=== PATIENT | male | born 1970 | race Caucasian/White ===

== ENCOUNTER 2018-09-11 16:06 | Observation (INO) | payer OTHER, SELFPAY ==
--- NOTE | 2018-09-11 | DI.CT.S_ITS ---
PROCEDURE: CT ANGIO CHEST ABDOMEN INDICATIONS: chest pain, pleurisy, vomiting, diaphoresis, leg pain TECHNIQUE: Precontrast 5 mm thick sections acquired from the lung apices to the iliac crests. After the administration of intravenous contrast, 2.5 mm thick sections again acquired from the lung apices to the iliac crests. 10 mm maximum intensity projection (MIP) oblique sagittal and coronal reformats were then acquired. For radiation dose reduction, the following was used: automated exposure control. COMPARISON: None. FINDINGS: Image quality: Excellent. AORTA: Intramural hematoma: Absent Maximum hematoma thickness: Not applicable. Focal contrast enhancement: Intramural blood pool (< 2 mm neck or imperceptible communication with aortic lumen): Absent. Ulcer-like projection (broad communication with aortic lumen > 3 mm): Absent. Dissection: Absent Milan classification: Not applicable. Maximum aortic diameter: 3.2 cm. [If Milan A dissection, > 5.0 cm has a poorer prognosis. If Julius B dissection, > 4.0 cm has a poorer prognosis.] Periaortic hematoma: Absent. CHEST: Lungs and pleura: Atelectasis noted in the dependent portions of the lungs. Emphysematous disease with apical predominance noted. No pleural effusions or pneumothorax. Central and peripheral airways are patent and normal in caliber. Mediastinum: Heart size is normal. Atherosclerotic calcifications are noted in the left coronary vasculature. No pericardial effusion. No mediastinal or hilar adenopathy by size criteria. Central pulmonary arteries are normal in size. Esophagus is normal in caliber. No hiatal hernias. Bones and chest wall: No axillary adenopathy by size criteria. Thyroid gland is normal. No suspicious bony lesions. No vertebral body compression fractures. ABDOMEN: Vasculature: Celiac trunk and mesenteric arteries are patent. Renal arteries are also patent. Solid organs: Liver is normal in size and enhancement. Gallbladder is contracted, but within normal limits. Biliary system is non dilated. Pancreas enhances normally. Spleen is normal in size and enhancement. No adrenal nodules. Both kidneys are normal in size and enhancement, without hydronephrosis. Peritoneum and bowel: No free fluid or air. Bowel loops are normal in caliber and wall thickness. Nodes and vessels: No retroperitoneal or mesenteric adenopathy by size criteria. Inferior vena cava is normal in morphology. Scattered atherosclerotic calcifications noted in the abdominal aorta and the proximal iliac vasculature. Bones: No suspicious bony lesions. No vertebral body compression fractures. Spine degenerative disc disease and facet arthropathy. L5-S1 fixation hardware. Miscellaneous: No ventral hernias. IMPRESSION: 1. No aortic dissection or aortic aneurysm. 2. No central pulmonary embolus. 3. Bilateral emphysematous disease. 4. Atherosclerosis including the left coronary vasculature Dictated by: Vicky Christianson MD, PhD on 09/12/2018 at 10:10 Approved by: Vicky Christianson MD, PhD on 09/12/2018 at 10:16
[2018-09-11 16:13] VITALS: BP 153/104; PULSE 78; RESP 15; TEMP 36.7; O2SAT 99; BMI 27.7
--- NOTE | 2018-09-11 16:13 | DI.RAD.S_ITS ---
PROCEDURE: XR CHEST 1V INDICATIONS: chest pain TECHNIQUE: One view of the chest was acquired. COMPARISON: None. FINDINGS: Surgical changes and devices: None. Lungs and pleura: No pleural effusions or pneumothorax. Lungs are clear. Mediastinum: Mediastinal contours appear normal. Heart size is normal. Bones and chest wall: No suspicious bony lesions. Overlying soft tissues appear unremarkable. IMPRESSION: No acute cardiopulmonary findings. Dictated by: Alanna Solis M.D. on 09/11/2018 at 16:51 Approved by: Alanna Solis M.D. on 09/11/2018 at 16:51
[2018-09-11 16:25] LABS: Add Manual Diff / Slide Review NO; Basophils Absolute Auto 100 /uL (0-100); Basophils Percent Auto 1.1 % (0-2); Eosinophils Absolute Auto 100 /uL (0-450); Hematocrit 45.7 % (41-53); Hemoglobin 15.3 g/dL (13.5-17.5); Lymphocytes Absolute Auto 2700 /uL (1100-4500); Lymphocytes Percent Auto 36.9 % (25-40); Mean Corpuscular HGB Conc 33.5 % (30-36); Mean Corpuscular Hemoglobin 31.4 PG (26-34); Mean Corpuscular Volume 93.5 fL (80-100); Monocytes Absolute Auto 600 /uL (0-900); Monocytes Percent Auto 8.5 % (3-14); Neutrophils Absolute Auto 3700 /uL (1500-7000); Neutrophils Percent Auto 51.5 % (50-75); Platelet Count 294 X10^3/uL (150-400); Red Blood Cell Count 4.89 X10^6/uL (4.5-5.9); Red Cell Distribution Width 13.9 % (11.6-14.8); White Blood Cell Count 7.3 X10^3/uL (4.5-11.0)
[2018-09-11 16:34] LABS: INR 1.1 (0.9-1.3)
[2018-09-11 16:37] LABS: PTT Partial Thromboplastin Tim 34 SECONDS (26.4-36.2)
[2018-09-11 16:41] LABS: Alanine Aminotransferase 34 IU/L (21-72); Albumin 4.5 g/dL (3.5-5.0); Albumin Globulin Ratio 1.4 (1.0-2.8); Alkaline Phosphatase 69 U/L (38-126); Aspartate Aminotransferase 29 IU/L (17-59); Bilirubin Total 0.3 mg/dL (0.2-1.3); Blood Urea Nitrogen 18 mg/dL (9-20); Calcium 9.4 mg/dL (8.4-10.2); Carbon Dioxide 27 mmol/L (22-32); Chloride 102 mmol/L (98-107); Creatine Kinase 158 U/L (55-170); Estimated Glomerular Filt Rate > 60.0 mL/min (>60); Globulin 3.3 g/dL (1.7-4.1); Glucose 95 mg/dL (70-100); HEMOLYSIS 16 (0-50); Lipase 64 U/L (23-300); Potassium 4.4 mmol/L (3.4-5.1); Sodium 139 mmol/L (137-145); Total Protein 7.8 g/dL (6.3-8.2)
[2018-09-11 16:53] LABS: Troponin I 0.013 ng/mL (0.01-0.034)
[2018-09-11 16:56] LABS: CKMB % Relative Index 0.5 % (1.5-5.0); Creatine Kinase MB 0.84 ng/mL (<2.37)
--- NOTE | 2018-09-11 16:59 | ED_ITS ---
HPI - Chest Pain General Chief Complaint: Chest Pain Stated Complaint: Chest pain Time Seen by Provider: 09/11/18 16:12 Source: patient and EMS Mode of arrival: EMS Limitations: no limitations History of Present Illness HPI narrative: Patient is a 48-year-old male who presents with chest pain. He was being evaluated by his primary care doctor while in the waiting room he had severe heaviness in his chest. He apparently was clammy diaphoretic with the doctor evaluated him EMS was called. He was given aspirin and nitro which has seemed to help but continues to have chest discomfort. No shortness of breath. It is of substernal epigastric area. He does have a history of esophageal spasm. He ate a pork sandwich 2 hr prior to his symptoms. This does not feel like an esophageal spasm. MD complaint: chest pain Onset (ago): minute(s) Duration: constant Onset: during rest Pain location: substernal and epigastric Relieving factors: nothing Exacerbating factors: nothing Related Data Home Medications Medication Instructions Recorded Confirmed aspirin 81 mg tablet,delayed 81 mg PO DAILY 07/25/18 09/11/18 release oxycodone-acetaminophen 7.5 mg-325 1 tab PO TID PRN tab 07/25/18 09/11/18 mg tablet indomethacin 25 mg PO DAILY 09/11/18 09/11/18 pantoprazole 40 mg PO DAILY 09/11/18 09/11/18 ranitidine HCl 150 mg PO BID 09/11/18 09/11/18 zolpidem 10 mg PO BEDTIME PRN 09/11/18 09/11/18 Allergies Allergy/AdvReac Type Severity Reaction Status Date / Time penicillin G [PENICILLIN G] Allergy Severe THROAT Verified 09/11/18 16:13 SWELLING Review of Systems Review of Systems GENERAL: Denies chills, fatigue, malaise, fever, sweats, travel HEENT: Denies sinus pain, ear pain, sore throat, difficulty swallowing, neck pain RESPIRATORY: Denies dyspnea, cough, wheezing, hemoptysis, sputum. CARDIOVASCULAR: See HPI GASTROINTESTINAL: Denies nausea, vomiting, abdominal pain, diarrhea, constipation, melena. : Denies dysuria, frequency, incontinence, hematuria, urinary retention, flank pain. MUSCULOSKELETAL: Denies weakness, joint pain, or bony pain SKIN: No rash, no erythema, no pruritus NEUROLOGIC: Denies weakness, dizziness, headache, numbness, change in speech, confusion PSYCHIATRIC: No concerning psychosocial issues. 12 point review of systems is negative except for those stated above and HPI [facility] Medical History Carotid artery dissection (Resolved) Social History Smoking Status: Current every day smoker Exam Initial Vital Signs Initial Vital Signs: Vital Signs Temperature 98.1 F 09/11/18 16:13 Pulse Rate 78 09/11/18 16:13 Respiratory Rate 15 09/11/18 16:13 Blood Pressure 153/104 H 09/11/18 16:13 Pulse Oximetry 99 09/11/18 16:13 GENERAL: Appears well and non diaphoretic HEENT: Head atraumatic,EOMI, pupils reactive, CARDIOVASCULAR: Regular rate and rhythm without murmurs, rubs or gallops. RESPIRATORY: Breath sounds equal bilaterally, no wheezes rales or rhonchi. ABDOMEN: Soft, nontender. Normoactive bowel sounds all 4 quadrants. No guarding or rebound. EXTREMITIES: Normal range of motion, no clubbing or edema. Neurovascularly intact NEUROLOGICAL: Alert and oriented x4.Normal gait and speech. Cranial nerves II through XII grossly intact. SKIN: Warm, dry, no laceration, no petechiae, no rashes or lesions. Course Orders Ordered: ED Orders 09/11/18 16:13 XR chest 1V Stat 09/11/18 16:19 Complete Blood Count AUTO DIFF Stat Comprehensive Metabolic Panel Stat Lipase Stat Partial Thromboplastin Time Stat Prothrombin Time INR Stat Troponin & CK Cardiac Panel Stat 09/11/18 18:20 EKG-12 Lead Stat 09/11/18 18:40 Troponin I Stat Discontinued Medications Ketorolac Tromethamine (Toradol) 30 mg IV NOW ONE Stop: 09/11/18 16:50 Last Admin: 09/11/18 17:01 Dose: 30 mg Pantoprazole Sodium (Protonix) 40 mg IV NOW ONE Stop: 09/11/18 16:50 Last Admin: 09/11/18 17:01 Dose: 40 mg Vital Signs - 8 hr 09/11/18 16:13 09/11/18 17:30 09/11/18 18:11 Temperature 98.1 F Pulse Rate 78 49 L 76 Respiratory Rate 18 Blood Pressure 153/104 H Blood Pressure [Left Arm] 123/83 133/78 Pulse Oximetry 99 100 92 09/11/18 18:35 09/11/18 19:00 Temperature Pulse Rate 49 L 52 L Respiratory Rate 14 21 Blood Pressure Blood Pressure [Left Arm] 124/79 130/86 Pulse Oximetry 100 100 MDM - Chest Pain Lab Data Attestation: I reviewed the patient's lab results. Result diagrams: 09/11/18 16:19 09/11/18 16:19 Lab Results 09/11/18 09/11/18 09/11/18 Range/Units 16:19 16:19 16:19 WBC 7.3 (4.5-11.0) X10^3/uL RBC 4.89 (4.5-5.9) X10^6/uL Hgb 15.3 (13.5-17.5) g/dL Hct 45.7 (41-53) % MCV 93.5 (80-100) fL MCH 31.4 (26-34) PG MCHC 33.5 (30-36) % RDW 13.9 (11.6-14.8) % Plt Count 294 (150-400) X10^3/uL Neut % (Auto) 51.5 (50-75) % Lymph % (Auto) 36.9 (25-40) % [place] % (Auto) 8.5 (3-14) % Eos % (Auto) 2.0 (2-4) % Baso % (Auto) 1.1 (0-2) % Neut # (Auto) 3700 (3856-7946) /uL Lymph # (Auto) 2700 (7941-5580) /uL [place] # (Auto) 600 (0-900) /uL Eos # (Auto) 100 (0-450) /uL Baso # (Auto) 100 (0-100) /uL PT 13.0 H (10.1-12.7) SECONDS INR 1.1 (0.9-1.3) APTT 34 (26.4-36.2) SECONDS Sodium 139 (137-145) mmol/L Potassium 4.4 (3.4-5.1) mmol/L Chloride 102 (98-107) mmol/L Carbon Dioxide 27 (22-32) mmol/L BUN 18 (9-20) mg/dL Creatinine 1.20 (0.66-1.25) mg/dL Estimated GFR > 60.0 (>60) mL/min BUN/Creatinine Ratio 15.0 (6-22) Glucose 95 (70-100) mg/dL Calcium 9.4 (8.4-10.2) mg/dL Total Bilirubin 0.3 (0.2-1.3) mg/dL AST 29 (17-59) IU/L ALT 34 (21-72) IU/L Alkaline Phosphatase 69 (38-126) U/L Total Creatine Kinase 158 (55-170) U/L CK-MB (CK-2) 0.84 (<2.37) ng/mL CK-MB (CK-2) Rel Index 0.5 L (1.5-5.0) % Troponin I 0.013 (0.01-0.034) ng/mL Total Protein 7.8 (6.3-8.2) g/dL Albumin 4.5 (3.5-5.0) g/dL Globulin 3.3 (1.7-4.1) g/dL Albumin/Globulin Ratio 1.4 (1.0-2.8) Lipase 64 (23-300) U/L 09/11/18 Range/Units 18:40 WBC (4.5-11.0) X10^3/uL RBC (4.5-5.9) X10^6/uL Hgb (13.5-17.5) g/dL Hct (41-53) % MCV (80-100) fL MCH (26-34) PG MCHC (30-36) % RDW (11.6-14.8) % Plt Count (150-400) X10^3/uL Neut % (Auto) (50-75) % Lymph % (Auto) (25-40) % [place] % (Auto) (3-14) % Eos % (Auto) (2-4) % Baso % (Auto) (0-2) % Neut # (Auto) (2980-7015) /uL Lymph # (Auto) (0536-8835) /uL [place] # (Auto) (0-900) /uL Eos # (Auto) (0-450) /uL Baso # (Auto) (0-100) /uL PT (10.1-12.7) SECONDS INR (0.9-1.3) APTT (26.4-36.2) SECONDS Sodium (137-145) mmol/L Potassium (3.4-5.1) mmol/L Chloride (98-107) mmol/L Carbon Dioxide (22-32) mmol/L BUN (9-20) mg/dL Creatinine (0.66-1.25) mg/dL Estimated GFR (>60) mL/min BUN/Creatinine Ratio (6-22) Glucose (70-100) mg/dL Calcium (8.4-10.2) mg/dL Total Bilirubin (0.2-1.3) mg/dL AST (17-59) IU/L ALT (21-72) IU/L Alkaline Phosphatase (38-126) U/L Total Creatine Kinase (55-170) U/L CK-MB (CK-2) (<2.37) ng/mL CK-MB (CK-2) Rel Index (1.5-5.0) % Troponin I 0.019 (0.01-0.034) ng/mL Total Protein (6.3-8.2) g/dL Albumin (3.5-5.0) g/dL Globulin (1.7-4.1) g/dL Albumin/Globulin Ratio (1.0-2.8) Lipase (23-300) U/L Urine Dip Bedside Urine Glucose Negative Bedside Urine Bilirubin - Negative Bedside Urine Ketone - Negative Urine Specific [place] 1.020 Bedside Urine Occult Blood - Negative Bedside Urine pH 6.0 Bedside Urine Protein - Negative Bedside Urine Urobilinogen - Negative Bedside Urine Nitrite - Negative Bedside Urine Leukocytes - Negative Esterase ECG Data Attestation: I personally reviewed and interpreted this ECG as follows: Prior ECG tracings: available for review Interpretation: EKG 1. Sinus rhythm rate 56 DC interval 141 T-wave inversion noted in V2 which is new from previous EKG in 2015. He does have T-wave inversion in lead V1 which is similar to prior. No ST depressions or elevations. EKG 2. Sinus rhythm rate 46 persistent all biphasic like T-waves in V2 no ST changes. EKG 3. Sinus rhythm rate 48 similar to previous EKG without changes. MDM Narrative Medical decision making narrative: Patient does have EKG changes troponin has gone up slightly is still is considered negative. Patient has signs and symptoms concerning for angina or ischemia. Patient will be placed in observation. Patient refusing any more nitro, says it gives him a headache. He is given Toradol and Protonix. He is seen by pain management for chronic headaches. Discharge Plan Departure Patient Disposition: Admitted as Observation Clinical Impression: Chest pain
[2018-09-11] MEDS: KETOROLAC 60 MG/2 ML VIAL 30 MG IV (17:01)
[2018-09-11] MEDS: PANTOPRAZOLE 40 MG VIAL IV (17:01)
[2018-09-11 17:30] VITALS: BP 123/83; PULSE 49; RESP 19; O2SAT 100
[2018-09-11 18:11] VITALS: BP 133/78; PULSE 76; RESP 18; O2SAT 92
--- NOTE | 2018-09-11 18:12 | PC.NURSE ---
md suggested to try ntg if pt still has pain, pt states pain much better now after rx, and refuses ntg at this time. aware
[2018-09-11 18:35] VITALS: BP 124/79; PULSE 49; RESP 14; O2SAT 100
[2018-09-11 19:00] VITALS: BP 130/86; PULSE 52; RESP 21; O2SAT 100
[2018-09-11 19:18] LABS: Troponin I 0.019 ng/mL (0.01-0.034)
[2018-09-11 20:25] VITALS: BP 149/95; PULSE 56; RESP 20; TEMP 36.6; O2SAT 99
[2018-09-11 20:31] VITALS: BMI 28.0
[2018-09-11] MEDS: PANTOPRAZOLE 40 MG TABLET PO (22:51)
[2018-09-11] MEDS: MAG HYDROX/ALUMINUM/SIMETH SUS 20 ML, LIDOCAINE VISCOUS 2% 15 ML PO (23:03)
[2018-09-11] MEDS: HYDROCODONE/ACET 5/325 TABLET 1 TAB PO (23:06)
--- NOTE | 2018-09-11 23:51 | PC.NURSE ---
Evening Shift Note- Patient arrived to room from ER via stretcher. Patiet able to wake with steady gait noted. Admission questions completed. Home medicaitons reviewed. Physical assessment done. Tele monitor in place and paperwork sent to ICU. Oriented patient to bed and bed controls, room, bathroom, lights, phone, menu, and call shoemaker/TV remote. PRN norco given for complaints of pain. Patient reports no change upon reassessment. Safety measures in place. Patient agrees to call for assistance. staying night in room. call shoemaker and phone within reach. Will Continue to monitor.
--- NOTE | 2018-09-12 | DI.NM.S_ITS ---
PROCEDURE: NM LOPEZ PERF SPECT SINGLE STUDY Exercise myocardial perfusion SPECT with gated imaging and ejection fraction RADIOPHARMACEUTICAL: 27.2 mCi Tc-99m sestamibi IV at peak exercise. INDICATIONS: chest pain, dizziness, symptomatic bradycardia TECHNIQUE: Radiopharmaceutical was injected at peak stress test. SPECT images were obtained, with perfusion images in short axis, horizontal long axis, and vertical long axis views. Gated images were reviewed using [employer] software. COMPARISON: None. CARDIAC STRESS: A standard [place] treadmill exercise tolerance test was performed by the patient under the supervision of an attending staff. The patient exercised for 7 minutes and 20 seconds reaching 10.1 METs; functional aerobic impairment (ANISHA) is +30%. Hemodynamic data: There is normal blood pressure and heart response to exercise. Patient achieved 86% of maximum predicted heart rate. Symptoms: Patient had non-diagnostic chest pain during the entire study that may have increased with exercise. EKG: No diagnostic changes of ischemia; no ectopy. FINDINGS: Raw data: There is good labeling of myocardium by radiotracer. No significant motion artifacts. Gvvs-oi-bginf ratio is 0.33 (normal is less than 0.38 for sestamibi tracer, and less than 0.50 for thallium tracer). Left ventricular function: Gated images demonstrate normal left ventricle wall thickening. No segmental wall motion abnormalities. Left ventricle end diastolic volume is 138 mL. Left ventricle stress ejection fraction is 52%; normal values are above 45%. Myocardial perfusion: There is normal distribution of activity in the left and right ventricular myocardium, without focal perfusion defects. IMPRESSION: Low risk, normal treadmill only nuclear stress test. Non-diagnostic chest pain. 1) Normal perfusion images with evidence of ischemia or infarction. 2) Normal left ventricular size, wall motion, and systolic function (EF post stress 52%). 3) No ECG evidence of ischemia. 4) Non-diagnostic chest pain during the entire study that may have increased with exercise. 5) Reduced exercise tolerance (10.1 METs, ANISHA +30%). Target heart achieved. Appropriate hemodynamic response to exercise. 6) No prior nuclear stress test available for comparison. Dictated by: Luz Arellano MD on 09/12/2018 at 12:50 Approved by: Luz Arellano MD on 09/12/2018 at 12:54
[2018-09-12 00:15] VITALS: BP 130/75; PULSE 67; RESP 16; TEMP 36.3; O2SAT 97
--- NOTE | 2018-09-12 00:40 | P.HP_ITS ---
History of Present Illness Date Patient Seen: 09/11/18 Time Patient Seen: 20:40 Chief complaint: Chest pain Narrative: The patient is a 48-year-old male who presented to the ED to be evaluated for chest pain. Prior to arrival patient was being seen by his PCP for a routine exam at which time he developed sudden onset of severe sub- sternal vs. epigastric chest discomfort. Initially, chest discomfort was characterized as a burning sensation. However, in a short period of time intensity magnified, now w/ sensation of a constant dull ache. Severity is noted to range 1-5 / 10 at rest AND 6-8 / 10 with inspiration or movement. Associated symptoms include shortness of breath, diaphoresis, and difficulty with deep inspiration due to chest discomfort. EMS was summoned, while en route to the ED patient was given 324 mg of ASA, a dose of morphine and a dose of nitro. His pain subsided, but did not go away completely. Developed headache with nitro. Three weeks ago patient has been experiencing URI symptoms that included sinus pressure, drainage, chest congestion, and cough that persisted for 1-2 weeks. On 09/10/2018 at 3:00 a.m. patient woke up from sleep with nausea, vomiting, palpitations, and diaphoresis. Since then has had an additional 2-3 episodes of vomiting. At time episodes are post-prandial. Patient does have a history of GERD (sx reported as controlled w/ PPI and H2B, an esophageal stricture (w/ prior dilatation, 2017), and an esophageal spasm. Recently having trouble swallowing. Able to manage secretions. Recently patient's blood pressure has been elevated, 150-90 range (typically runs SBP 110-120 and DBP 70-80). He complains of acute LLE calf and inner aspect of the thigh tenderness (no unilateral edema). No prior history of SC, arrhthmias or CVA. He denies hemoptysis, syncopal events, and blood loss per rectum. He does have risk factors for heart disease which include prolonged history of tobacco dependence, family history of heart disease. No prior history of a stress test or any other cardiac workup. GI work-up in 2017 Patient History Medical History COPD (chronic obstructive pulmonary disease) (Acute) Chronic migraine (Acute) Esophageal spasm (Acute) Michael's syndrome (Acute) Tobacco dependence (Acute) DDD (degenerative disc disease) (Chronic) Esophageal stricture (Suspected) Carotid artery dissection (Resolved) Uvular swelling (Resolved) Surgical History History of back surgery (Acute) Family & Social History Family History: Reviewed 09/12/18 by GABRIEL Gamboa Social History: household members spouse,children Prior Living Arrangements House Safety & Behavioral: Feels Safe in Current Yes Environment Been Physically Hurt or No Threatened By a Person Suicidal Ideation Description None Tobacco & Substance use: Tobacco type cigarettes, less than 1/2 ppd Smoking Status Current every day smoker alcohol intake never alcohol intake frequency 0-2 drinks per day Substance Use Type Uses CBD Meds Home Medications Medication Instructions Recorded Confirmed Type aspirin 81 mg tablet,delayed 81 mg PO DAILY 07/25/18 09/11/18 History release oxycodone-acetaminophen 7.5 mg-325 1 tab PO TID PRN tab 07/25/18 09/11/18 History mg tablet indomethacin 25 mg PO DAILY 09/11/18 09/11/18 History pantoprazole 40 mg PO DAILY 09/11/18 09/11/18 History ranitidine HCl 150 mg PO BID 09/11/18 09/11/18 History zolpidem 10 mg PO BEDTIME PRN 09/11/18 09/11/18 History Allergies Allergy/AdvReac Type Severity Reaction Status Date / Time penicillin G [PENICILLIN G] Allergy Severe THROAT Verified 09/11/18 16:13 SWELLING Review of Systems Review of Systems All systems reviewed & are unremarkable except as noted in HPI and below Exam Vital Signs (past 8 hours): - 09/11/18 17:30 09/11/18 18:11 09/11/18 18:35 Temperature Pulse Rate 49 L 76 49 L Respiratory Rate 19 18 14 Blood Pressure Blood Pressure [Left Arm] 123/83 133/78 124/79 Pulse Oximetry 100 92 100 09/11/18 19:00 09/11/18 20:25 Temperature 97.9 F Pulse Rate 52 L 56 L Respiratory Rate 21 20 Blood Pressure 149/95 H Blood Pressure [Left Arm] 130/86 Pulse Oximetry 100 99 Oxygen Delivery Method Room Air Oxygen Flow Rate 0 Narrative Exam Narrative: Constitutional: Mild discomfort, c/o epigastric pain Neurologic: AOx3, no focal neurological deficits Head: NC, AT Eyes: Left eye lid ptosis, pupil dilates sluggishly. Right eye WNL. Ears: external ears normal, no otorrhea Nose: external nose normal, no rhinorrhea or epistaxis Throat: dry MM, oropharynx w/o exudate Neck: no masses, lymphadenopathy, or JVD Chest / Respiratory: equal chest rise, shallow diminished respiratory effort, pain reproducible w/ palpation Heart / CV: S1S2, no murmur Abdomen / GI: round, NT, ND, + BS, no organomegaly : no suprapubic tenderness, no CVA Peripheral / Vascular: BLE warm to touch, DP and PT pulses palpable, no edema LLE tender calf and inner thigh, sensation intact Musc: full ROM of upper and lower extremities, adequate muscle tone and bulk Skin: no ecchymosis or suspicious lesions / ulcers Objective Labs Result Diagrams: 09/11/18 16:19 09/11/18 16:19 Labs: Laboratory Results - last 24 hr 09/11/18 09/11/18 09/11/18 16:19 16:19 16:19 WBC 7.3 RBC 4.89 Hgb 15.3 Hct 45.7 MCV 93.5 MCH 31.4 MCHC 33.5 RDW 13.9 Plt Count 294 Neut % (Auto) 51.5 Lymph % (Auto) 36.9 [place] % (Auto) 8.5 Eos % (Auto) 2.0 Baso % (Auto) 1.1 Neut # (Auto) 3700 Lymph # (Auto) 2700 [place] # (Auto) 600 Eos # (Auto) 100 Baso # (Auto) 100 PT 13.0 H INR 1.1 APTT 34 Sodium 139 Potassium 4.4 Chloride 102 Carbon Dioxide 27 BUN 18 Creatinine 1.20 Estimated GFR > 60.0 BUN/Creatinine Ratio 15.0 Glucose 95 Calcium 9.4 Total Bilirubin 0.3 AST 29 ALT 34 Alkaline Phosphatase 69 Total Creatine Kinase 158 CK-MB (CK-2) 0.84 CK-MB (CK-2) Rel Index 0.5 L Troponin I 0.013 Total Protein 7.8 Albumin 4.5 Globulin 3.3 Albumin/Globulin Ratio 1.4 Lipase 64 09/11/18 18:40 WBC RBC Hgb Hct MCV MCH MCHC RDW Plt Count Neut % (Auto) Lymph % (Auto) [place] % (Auto) Eos % (Auto) Baso % (Auto) Neut # (Auto) Lymph # (Auto) [place] # (Auto) Eos # (Auto) Baso # (Auto) PT INR APTT Sodium Potassium Chloride Carbon Dioxide BUN Creatinine Estimated GFR BUN/Creatinine Ratio Glucose Calcium Total Bilirubin AST ALT Alkaline Phosphatase Total Creatine Kinase CK-MB (CK-2) CK-MB (CK-2) Rel Index Troponin I 0.019 Total Protein Albumin Globulin Albumin/Globulin Ratio Lipase Assessment & Plan Plan: Assessment/Plan Narrative: Acute Chest Pain Pertinent hx of carotid dissection, tobacco dependence, esophageal stricture, GERD Trop 0.013, 0.019 EKG revealing of SB w/ sinus arrhytmia, non-ischemic, HR 40s VSS. No e-lyte abnormalities. CXR not indicative of acute cardiopulmonary findings. - Tele monitoring - Continue trending troponins - Risk Stratify: A1C, FLP - NPO - MPI in am - Orthostatic BP - Continue 81 mg ASA daily Symptomatic Bradycardia Reports severe snoring. Notes being evaluated for ELENI in 2017 and not deemed to be a candidate for CPAP. H/O enlarged / edematous uvula w/ surgery. Not on a BB or CCB. - Check TSH - MPI in am - Infection ?? CXR negative, no leukocytosis - Echo H/O carotid artery dissection Sudden onset of chest pain, persistent, unresponsive to nitro w/ associated VALERO, dyspnea, diaphoresis and LLE acute pain - CT imaging per dissection protocol Results: no AAA, thoracic aneurysm or dissection. Normal mesenteric arteries mild mural thrombus causes mild narrowing of the visualized right common iliac artery; normal left common iliac artery Started on Lovenox COPD w/ scattered blebs and bullae w/ largest 1.8 cm ?? new no hemoptysis, no PE on CTA chest Esophageal Stricture Suspected... refractory / recurrent. H/o prior dilatation (2017) S/S: Cp, dysphagia. RF: smoking, GERD, nausea, post-prandial vomiting - Increase PPI / protonix to BID - Continue ranitadine at [employer]ESSIONAL dose - Encouraged smoking cessation - Consider GI consult for evaluation Nausea / Vomiting intractable - Compazine Quality VTE Deep Vein Thrombosis/Pulmonary Embolism Present on Admission: No
[2018-09-12 01:01] LABS: Troponin I 0.015 ng/mL (0.01-0.034)
[2018-09-12] MEDS: MORPHINE 4 MG/ML INJ IV (01:03)
[2018-09-12] MEDS: ENOXAPARIN 100 MG/ML SYRINGE 90 MG SUBCUT (01:03)
[2018-09-12] MEDS: SODIUM CHLORIDE 0.9% 1,000 ML 125 ML IV ×2 (01:03→09:26)
[2018-09-12] MEDS: HYDROCODONE/ACET 5/325 TABLET 1 TAB PO (04:40)
[2018-09-12 04:46] VITALS: BP 122/78; PULSE 61; RESP 16; TEMP 36.8; O2SAT 98
[2018-09-12 07:21] LABS: Hemoglobin A1C% w Est Avg Glu 5.5 % (4.0-6.0)
[2018-09-12 07:24] LABS: D Dimer 219 ng/mL (<230)
[2018-09-12 07:30] VITALS: BP 124/82; PULSE 57; RESP 18; TEMP 36.3; O2SAT 97
[2018-09-12 07:33] LABS: Cholesterol 188 mg/dL (140-199); HDL Cholesterol 30 mg/dL (40-60); LDL Cholesterol Calculated 121 mg/dL (<100); Triglycerides 184 mg/dL (35-150)
[2018-09-12 07:45] LABS: Troponin I 0.026 ng/mL (0.01-0.034)
[2018-09-12 08:03] LABS: Thyroid Stimulating Hormone 3.01 uIU/mL (0.47-4.68)
[2018-09-12 10:05] LABS: BUN Creatinine Ratio 16.4 (6-22); Blood Urea Nitrogen 18 mg/dL (9-20); Calcium 8.8 mg/dL (8.4-10.2); Carbon Dioxide 25 mmol/L (22-32); Chloride 106 mmol/L (98-107); Estimated Glomerular Filt Rate > 60.0 mL/min (>60); Glucose 90 mg/dL (70-100); HEMOLYSIS < 15 (0-50); Potassium 4.8 mmol/L (3.4-5.1); Sodium 139 mmol/L (137-145)
--- NOTE | 2018-09-12 11:50 | P.PCN_ITS ---
Cardiac Stress Test Report Referral & Results Date Patient Seen: 09/12/18 Time Patient Seen: 11:48 Requesting provider: Rolly Richards Indication: Chest pain Rest ECG: Unremarkable Procedure Note: Today following both written and verbal informed consent the patient was exercised according to a standard [place] protocol patient went for a total of 7 min 20 sec achieving a maximum heart rate of 149 maximum systolic blood pressure of 190. This is approximately 10.1 METS. Exercise was terminated at this point because of inability of the patient to continue due to back pain and fatigue.Patient was also given Cardiolite through a previously started Hep-Lock IV by the nuclear weapons mechanical specialist approximately 1 minute prior to the cessation of exercise. No ST-T segment changes identified Normal heart rate and blood pressure response to exercise Functional aerobic impairment rated 20% on the sedentary scale Impression: No evidence of ischemia based on ECG criteria. Limited exercise capacity as above. Please see perfusion imaging report as well for details regarding possible ischemia identified through that modality. Please note: Actual ECG tracings can be found in the PACS system.
[2018-09-12 12:34] VITALS: BP 121/74; PULSE 67; RESP 18; TEMP 36.3; O2SAT 97
[2018-09-12] MEDS: PANTOPRAZOLE 40 MG TABLET PO (13:14)
[2018-09-12] MEDS: ASPIRIN EC 81 MG TABLET PO (13:14)
[2018-09-12] MEDS: MORPHINE 2 MG/ML INJ IV (13:26)
[2018-09-12] MEDS: HEPARIN 5,000 UNIT/ML VIAL 5000 UNIT SUBCUT (14:17)
[2018-09-12 14:26] LABS: Troponin I 0.024 ng/mL (0.01-0.034)
--- NOTE | 2018-09-12 15:12 | P.DS_ITS ---
History of Present Illness Date Patient Seen: 09/12/18 Chief complaint: Chest pain Narrative: Written by Rolly Richards PA-C: The patient is a 48-year-old male who presented to the ED to be evaluated for chest pain. Prior to arrival patient was being seen by his PCP for a routine exam at which time he developed sudden onset of severe sub- sternal vs. epigastric chest discomfort. Initially, chest discomfort was characterized as a burning sensation. However, in a short period of time intensity magnified, now w/ sensation of a constant dull ache. Severity is noted to range 1-5 / 10 at rest AND 6-8 / 10 with inspiration or movement. Associated symptoms include shortness of breath, diaphoresis, and difficulty with deep inspiration due to chest discomfort. EMS was summoned, while en route to the ED patient was given 324 mg of ASA, a dose of morphine and a dose of nitro. His pain subsided, but did not go away completely. Developed headache with nitro. Three weeks ago patient has been experiencing URI symptoms that included sinus pressure, drainage, chest congestion, and cough that persisted for 1-2 weeks. On 09/10/2018 at 3:00 a.m. patient woke up from sleep with nausea, vomiting, palpitations, and diaphoresis. Since then has had an additional 2-3 episodes of vomiting. At time episodes are post-prandial. Patient does have a history of GERD (sx reported as controlled w/ PPI and H2B, an esophageal stricture (w/ prior dilatation, 2017), and an esophageal spasm. Recently having trouble swallowing. Able to manage secretions. Recently patient's blood pressure has been elevated, 150-90 range (typically runs SBP 110-120 and DBP 70-80). He complains of acute LLE calf and inner aspect of the thigh tenderness (no unilateral edema). No prior history of VA, arrhthmias or CVA. He denies hemoptysis, syncopal events, and blood loss per rectum. He does have risk factors for heart disease which include prolonged history of tobacco dependence, family history of heart disease. No prior history of a stress test or any other cardiac workup. GI work-up in 2017. Discharge Providers Date of admission: 09/11/18 19:48 Primary care physician: Val Rodriguez DO Consults: 09/11/18 20:39 Consult to Respiratory Therapy Evaluate & Treat Comment: Physician Instructions: Evaluate and treat Discharge provider: Mercy Zeng DO Discharge Date: 09/12/18 Summary Discharge Diagnosis: 1. Acute atypical chest pain, present on admission. Improving. 2. Possible obstructive sleep apnea. 3. History of carotid artery dissection, not present on admission. Inactive. 4. Probable COPD, present on admission. Stable. 5. History of esophageal stricture. 6. Tobacco use disorder, present on admission. Active. Hospital Course: 1. Acute atypical chest pain, present on admission. Improving. -Sudden onset burning persistent chest pain incompletely responsive to morphine and nitroglycerin with associated dyspnea and diaphoresis. -Cardiac risk factors include: Family history, tobacco dependence, previous carotid artery dissection, overweight, and possible obstructive sleep apnea. -Serial troponins were within normal limits. -EKG demonstrated sinus bradycardia without acute ischemic changes such as ST elevation or depression. -Vital signs were stable and there were no electrolyte abnormalities. Continued to monitor on telemetry closely. -Cardiac stress test with myocardial perfusion imaging normal without ischemic changes. -Ordered hemoglobin A1c 5.5% and he is not diabetic. -Continued aspirin 81 mg daily. -CTA demonstrated significant atherosclerotic changes throughout chest and abdomen. Lipid panel demonstrated: Total cholesterol 188, LDL 121, triglycerides 184, and HDL 30. Started atorvastatin 40 mg daily at bedtime and recommended increasing amount of omega-3 fatty acid. 2. Possible obstructive sleep apnea. -Reports severe snoring. Notes being evaluated for ELENI in 2017 and not deemed to be a candidate for CPAP. History of enlarged and edematous uvula status post surgery. -Consider repeat outpatient sleep study. 3. History of carotid artery dissection, not present on admission. Inactive. -Sudden onset burning persistent chest pain incompletely responsive to morphine and nitroglycerin with associated dyspnea and diaphoresis. -CTA did not demonstrate any PE, thoracic aneurysm or artery dissection with significant atherosclerotic plaque throughout chest and abdomen even involving left coronary artery. 4. Probable COPD, present on admission. Stable. -Patient is a longstanding smoker with CTA demonstrating scattered blebs and bullae with the largest 1.8 cm. -Recommended outpatient pulmonology referral for evaluation of COPD. 5. History of esophageal stricture. -Suspected refractory / recurrent. History of prior dilatation (2017). -Signs and symptoms: CP, dysphagia. Risk factors: smoking, GERD, nausea, post- prandial vomiting. -Continued home PPI. -Continued home ranitadine. -Encouraged smoking cessation. -Recommended follow-up with GI. 6. Tobacco use disorder, present on admission. Active. -Counseled the patient extensively regarding smoking cessation for which he adamantly confirms that he is never going to smoke again. -Consider smoking cessation aids as an outpatient. Status at Discharge Functional status at discharge: independent ambulation Overall status at discharge: patient is back to baseline Exam Vital Signs (past 8 hours): - 09/12/18 07:30 09/12/18 12:34 Temperature 97.4 F L 97.4 F L Pulse Rate 57 L 67 Respiratory Rate 18 18 Blood Pressure 124/82 121/74 Pulse Oximetry 97 97 Oxygen Delivery Method Room Air Oxygen Flow Rate 0 Narrative Exam Narrative: General: Middle-aged gentleman lying in bed and in no acute distress, well- developed, well-nourished, appropriately interactive. HEENT: Normocephalic, atraumatic. External ears without defect. Pupils equal, round, and reactive to light and accommodation. Anicteric sclerae, moist conjunctivae, and no lid lag. Left-sided Michael syndrome. Neck: Supple with full range of motion. No jugular venous distension. No bruits. No lymphadenopathy or thyromegaly. Cardiovascular: Regular rate and rhythm without murmurs, rubs, or gallops appreciated Pulmonary: Clear to auscultation bilaterally without crackles, wheezes, or rhonchi. Normal respiratory effort with no use of accessory muscles. Abdomen: Soft, bowel sounds present, nontender, nondistended. No hepatosplenomegaly or masses appreciated. Extremities: No clubbing, cyanosis, or edema. Skin: Normal temperature, turgor, and texture; no rash, ulcers, or subcutaneous nodules appreciated. Neurological: Cranial nerves grossly intact. Psychiatric: Normal mood and affect. Alert and oriented to person, place, and time. Objective Labs Result Diagrams: 09/11/18 16:09/12/18 06:30 Labs: Laboratory Results - last 24 hr 09/11/18 09/11/18 09/11/18 16:19 16: 16: WBC 7.3 RBC 4.89 Hgb 15.3 Hct 45.7 MCV 93.5 MCH 31.4 MCHC 33.5 RDW 13.9 Plt Count 294 Neut % (Auto) 51.5 Lymph % (Auto) 36.9 Berks % (Auto) 8.5 Eos % (Auto) 2.0 Baso % (Auto) 1.1 Neut # (Auto) 3700 Lymph # (Auto) 2700 [place]ks # (Auto) 600 Eos # (Auto) 100 Baso # (Auto) 100 PT 13.0 H INR 1.1 APTT 34 D-Dimer Sodium 139 Potassium 4.4 Chloride 102 Carbon Dioxide 27 BUN 18 Creatinine 1.20 Estimated GFR > 60.0 BUN/Creatinine Ratio 15.0 Glucose 95 Hemoglobin A1c Calcium 9.4 Magnesium Total Bilirubin 0.3 AST 29 ALT 34 Alkaline Phosphatase 69 Total Creatine Kinase 158 CK-MB (CK-2) 0.84 CK-MB (CK-2) Rel Index 0.5 L Troponin I 0.013 Total Protein 7.8 Albumin 4.5 Globulin 3.3 Albumin/Globulin Ratio 1.4 Triglycerides Cholesterol LDL Cholesterol, Calc HDL Cholesterol Lipase 64 TSH 09/11/18 09/12/18 09/12/18 18:40 00:29 06:30 WBC RBC Hgb Hct MCV MCH MCHC RDW Plt Count Neut % (Auto) Lymph % (Auto) Berks % (Auto) Eos % (Auto) Baso % (Auto) Neut # (Auto) Lymph # (Auto) Berks # (Auto) Eos # (Auto) Baso # (Auto) PT INR APTT D-Dimer 219 Sodium Potassium Chloride Carbon Dioxide BUN Creatinine Estimated GFR BUN/Creatinine Ratio Glucose Hemoglobin A1c Calcium Magnesium Total Bilirubin AST ALT Alkaline Phosphatase Total Creatine Kinase CK-MB (CK-2) CK-MB (CK-2) Rel Index Troponin I 0.019 0.015 Total Protein Albumin Globulin Albumin/Globulin Ratio Triglycerides Cholesterol LDL Cholesterol, Calc HDL Cholesterol Lipase TSH 09/12/18 09/12/18 09/12/18 06:30 06:30 06:30 WBC RBC Hgb Hct MCV MCH MCHC RDW Plt Count Neut % (Auto) Lymph % (Auto) Berks % (Auto) Eos % (Auto) Baso % (Auto) Neut # (Auto) Lymph # (Auto) [place]ks # (Auto) Eos # (Auto) Baso # (Auto) PT INR APTT D-Dimer Sodium Potassium Chloride Carbon Dioxide BUN Creatinine Estimated GFR BUN/Creatinine Ratio Glucose Hemoglobin A1c 5.5 Calcium Magnesium Total Bilirubin AST ALT Alkaline Phosphatase Total Creatine Kinase CK-MB (CK-2) CK-MB (CK-2) Rel Index Troponin I 0.026 Total Protein Albumin Globulin Albumin/Globulin Ratio Triglycerides 184 H Cholesterol 188 LDL Cholesterol, Calc 121 H HDL Cholesterol 30 L Lipase TSH 3.01 09/12/18 09/12/18 06:30 13:08 WBC RBC Hgb Hct MCV MCH MCHC RDW Plt Count Neut % (Auto) Lymph % (Auto) Berks % (Auto) Eos % (Auto) Baso % (Auto) Neut # (Auto) Lymph # (Auto) [place]ks # (Auto) Eos # (Auto) Baso # (Auto) PT INR APTT D-Dimer Sodium 139 Potassium 4.8 Chloride 106 Carbon Dioxide 25 BUN 18 Creatinine 1.10 Estimated GFR > 60.0 BUN/Creatinine Ratio 16.4 Glucose 90 Hemoglobin A1c Calcium 8.8 Magnesium 2.0 Total Bilirubin AST ALT Alkaline Phosphatase Total Creatine Kinase CK-MB (CK-2) CK-MB (CK-2) Rel Index Troponin I 0.024 Total Protein Albumin Globulin Albumin/Globulin Ratio Triglycerides Cholesterol LDL Cholesterol, Calc HDL Cholesterol Lipase TSH CT ANGIO CHEST ABDOMEN INDICATIONS: chest pain, pleurisy, vomiting, diaphoresis, leg pain TECHNIQUE: Precontrast 5 mm thick sections acquired from the lung apices to the iliac crests. After the administration of intravenous contrast, 2.5 mm thick sections again acquired from the lung apices to the iliac crests. 10 mm maximum intensity projection (MIP) oblique sagittal and coronal reformats were then acquired. For radiation dose reduction , the following was used: automated exposure control. COMPARISON: None. FINDINGS: Image quality: Excellent. AORTA: Intramural hematoma: Absent Maximum hematoma thickness: Not applicable. Focal contrast enhancement: Intramural blood pool (< 2 mm neck or imperceptible communication with aortic lumen): Absent. Ulcer-like projection (broad communication with aortic lumen > 3 mm): Absent. Dissection: Absent Julius classification: Not applicable. Maximum aortic diameter: 3.2 cm. [If Itmann A dissection, > 5.0 cm has a poorer prognosis. If Itmann B dissection, > 4.0 cm has a poorer prognosis.] Periaortic hematoma: Absent. CHEST: Lungs and pleura: Atelectasis noted in the dependent portions of the lungs. Emphysematous disease with apical predominance noted. No pleural effusions or pneumothorax. Central and peripheral airways are patent and normal in caliber. Mediastinum: Heart size is normal. Atherosclerotic calcifications are noted in the left coronary vasculature. No pericardial effusion. No mediastinal or hilar adenopathy by size criteria. Central pulmonary arteries are normal in size. Esophagus is normal in caliber. No hiatal hernias. Bones and chest wall: No axillary adenopathy by size criteria. Thyroid gland is normal. No suspicious bony lesions. No vertebral body compression fractures. ABDOMEN: Vasculature: Celiac trunk and mesenteric arteries are patent. Renal arteries are also patent. Solid organs: Liver is normal in size and enhancement. Gallbladder is contracted, but within normal limits. Biliary system is non dilated. Pancreas enhances normally. Spleen is normal in size and enhancement. No adrenal nodules. Both kidneys are normal in size and enhancement, without hydronephrosis. Peritoneum and bowel: No free fluid or air. Bowel loops are normal in caliber and wall thickness. Nodes and vessels: No retroperitoneal or mesenteric adenopathy by size criteria. Inferior vena cava is normal in morphology. Scattered atherosclerotic calcifications noted in the abdominal aorta and the proximal iliac vasculature. Bones: No suspicious bony lesions. No vertebral body compression fractures. Spine degenerative disc disease and facet arthropathy. L5-S1 fixation hardware. Miscellaneous: No ventral hernias. IMPRESSION: 1. No aortic dissection or aortic aneurysm. 2. No central pulmonary embolus. 3. Bilateral emphysematous disease. 4. Atherosclerosis including the left coronary vasculature Dictated by: Vicky Christianson MD, PhD on 09/12/2018 at 10:10 Approved by: Vicky Christianson MD, PhD on 09/12/2018 at 10:16 Discharge Plan Discharge Plan Patient Disposition: Home Discharge comment: You are being discharged home. Please follow-up with your primary care physician within the next 1 week. Your lab work and cardiac stress test with perfusion images were normal and did not show any evidence of ischemia (heart attack or impending heart attack). Your chest pain is not cardiac in origin and possibly your esophageal spasm or recurrent stricture and recommend GI follow-up. You are not diabetic. Your thyroid is normal. You have significant atherosclerosis in your chest and abdomen likely due to substantial amount of smoking. Please abstain from smoking both tobacco and marijuana altogether. There are smoking cessation aids available if you need help quitting. Please continue taking aspirin 81 mg daily and atorvastatin 40 mg daily at bedtime to help prevent heart attack and stroke. Continue moderate intensity cardiac exercise approximately 150 min per week. If you are unable to do 150 min initially, start with small obtainable goals and work your way up to [address] scan of your chest also demonstrated changes consistent with COPD and excessive smoking called blebs/bullae. Recommend a referral to pulmonology to be evaluated for COPD and pulmonary blebs/bullae. Discharge Med Rec/Prescriptions Prescriptions: New atorvastatin [Lipitor] 20 mg Tablet 40 mg PO BEDTIME Qty: 30 RF: 0 Continue pantoprazole 40 mg tablet,delayed release (DR/EC) 40 mg PO DAILY RF: 0 ranitidine HCl 150 mg tablet 150 mg PO BID RF: 0 indomethacin 25 mg capsule 25 mg PO DAILY RF: 0 zolpidem 10 mg tablet 10 mg PO BEDTIME PRN (Reason: Sleep) RF: 0 aspirin [Adult Aspirin Regimen] 81 mg tablet,delayed release (DR/EC) 81 mg PO DAILY RF: 0 oxycodone-acetaminophen 7.5-325 mg tablet 1 tab PO TID PRN (Reason: pain) RF: 0 Follow up/Referrals: Val Rodriguez DO [Primary Care Provider] - 09/17/18 8:00 am Provider Discharge Instructions Diet: Low-fat, Low-sodium and Low-cholesterol Activity: Activity as tolerated Skin/Wound/Dressing Care Report to your healthcare provider any signs of infection, such as:: increased pain Visit Report/Discharge Packet Instructions: The Mediterranean Diet and Good Health, DI for Atypical Chest Pain, All Forms of Smoking Are Bad for You Discharge Data Primary Care Provider: Val Rodriguez Attending Provider: Rolly Richards Admit Date/Time: 09/11/18 19:48 Quality VTE Deep Vein Thrombosis/Pulmonary Embolism Present on Admission: No
[2018-09-12] MEDS: OXYCODONE IR 10 MG TABLET PO (16:32)
--- NOTE | 2018-09-12 18:12 | PC.NURSE ---
Lesly shift note: Patient awake and alert, discharge instructions given as instructed by Dr. Zeng. Discussed importance of F/U with PMD, diet, activity and new prescribed medications. Information provided for Lipitor. Patient verbalized understanding of instructions, ambulating independently. Discharge home accompanied by via private vehicle.
== END 2018-09-12 16:00 | disposition home or self-care (01) ==
LOC: ED 19:42 → AC 19:53
PROVIDERS: Admitting Provider Nurse Practitioner Gerontology; Emergency Provider Emergency Medicine; PCP Family Medicine; Visit Provider Nurse Practitioner Gerontology
DX: R07.9 Chest pain, unspecified (principal); F17.210 Nicotine dependence, cigarettes, uncomplicated; G43.909 Migraine, unspecified, not intractable, without status migrainosus; K22.4 Dyskinesia of esophagus; G90.2 Horner's syndrome
CPT/HCPCS: 36415; 71045; 71275; 74175; 78451; 80048; 80053; 80061; 81003; 82550; 82553; 83036; 83690; 83735; 84443; 84484; 85025; 85379; 85610; 85730; 93005; 93010; 93016; 93017; 93018; 96374; 96375; 99284; 99285; G0378; A9502; C9113; J1644; J1650; J1885; J2270; Q9967

== ENCOUNTER → 2022-02-17 16:06 | Outpatient (CLI) | payer OTHER, SELFPAY ==
[2018-11-26 13:40] VITALS: BMI 28.0
--- NOTE | 2022-02-17 | DI.MRI.S_ITS ---
PROCEDURE: MR LUMBAR SPINE WO CON INDICATIONS: Radiculopathy, lumbar region TECHNIQUE: Noncontrast sagittal T1 spin echo and T2 fast echo, sagittal STIR, and T2 fast spin echo through the lumbar spine. In cases with scoliosis, additional coronal T2 fast spin echo may be performed. COMPARISON: [facility], MR, L-SPINE W&WO CONTRAST, 02/04/2016, 8:38. FINDINGS: Image quality: Excellent. Alignment and Curvature: There is remote right hemilaminectomy and posterior lateral wilma and pedicle screw fixation at L5-S1, as well as interbody fusion. There is normal alignment. Bone Marrow: Marrow is of normal overall signal. No acute vertebral body compression fractures. Spinal Cord: Conus medullaris terminates at the L1 level. Visualized cord demonstrates normal signal and size. Paraspinous Soft Tissues: No paravertebral masses. T12-L1: No canal stenosis or foraminal stenosis. L1-L2: No canal stenosis or foraminal stenosis. L2-L3: No canal stenosis or foraminal stenosis. L3-L4: Mild facet hypertrophy. No canal stenosis or foraminal stenosis. L4-L5: Posterior annulus tear plus diffuse disc bulge, as before. Facet hypertrophy. Slight interval progression of canal stenosis, [id number]. Mild bilateral foraminal stenosis. L5-S1: Fused, remote right hemilaminectomy. Mild posterior disc plus osteophyte. No significant canal stenosis. Right foramen is patent. Mild left foraminal stenosis. IMPRESSION: 1. Remote decompressive laminectomy and fusion at L5-S1. 2. Mild progression at L4-L5. There is [id number] canal stenosis. Dictated by: Lewis Velazquez M.D. on 02/18/2022 at 12:31 Approved by: Lewis Velazquez M.D. on 02/18/2022 at 12:37
== END ==
PROVIDERS: PCP Family Medicine; Referring Provider Family Medicine; Visit Provider Family Medicine
DX: M54.16 Radiculopathy, lumbar region (principal); Z98.1 Arthrodesis status; M48.061 Spinal stenosis, lumbar region without neurogenic claudication
CPT/HCPCS: 72148

== ENCOUNTER 2022-05-20 09:44 | Emergency (ER) | payer OTHER, SELFPAY ==
[2018-11-26 13:40] VITALS: BMI 28.0
[2022-05-20 09:45] VITALS: BP 123/73; PULSE 62; RESP 18; TEMP 36.6; O2SAT 98; BMI 29.2
[2022-05-20 09:48] VITALS: BP 123/73; PULSE 56; RESP 18; O2SAT 96
--- NOTE | 2022-05-20 09:55 | DI.RAD.S_ITS ---
PROCEDURE: XR SHOULDER LT MIN 2V INDICATIONS: Pain/injury TECHNIQUE: 3 views of the shoulder were acquired. COMPARISON: None. FINDINGS: Bones: No fractures or dislocations. No suspicious bony lesions. Visualized ribs appear intact. Soft tissues: No suspicious soft tissue calcifications. IMPRESSION: No acute radiographic findings. If pain persists, followup imaging in 5-7 days is recommended to exclude occult fracture. Dictated by: Alanna Solis M.D. on 05/20/2022 at 10:34 Approved by: Alanna Solis M.D. on 05/20/2022 at 10:34
--- NOTE | 2022-05-20 10:00 | ED_ITS ---
HPI - Extremity Injury (Upper) General Chief Complaint: Extremity Injury, Upper Stated Complaint: Left shoulder pain- heard a pop Time Seen by Provider: 05/20/22 09:55 Source: patient Mode of arrival: Ambulatory History of Present Illness HPI narrative: Patient here with . Complains of left anterior shoulder pain. Injured this 2 days ago throwing a football. Patient is left-handed. Previous history of left bicep repair years ago, 2 years ago. Denies any biceps pain. Complains pain at the acromioclavicular surface area. Increased pain with any range of motion. No numbness tingling or weakness. Related Data Home Medications Medication Instructions Recorded Confirmed aspirin 81 mg tablet,delayed 81 mg PO DAILY 07/25/18 12/19/18 release (Adult Aspirin Regimen) oxycodone-acetaminophen 7.5 mg-325 1 tab PO TID PRN pain 07/25/18 12/19/18 mg tablet indomethacin 25 mg capsule 25 mg PO DAILY 09/11/18 12/19/18 pantoprazole 40 mg tablet,delayed 40 mg PO DAILY 09/11/18 12/19/18 release ranitidine HCl 150 mg tablet 150 mg PO BID 09/11/18 12/19/18 zolpidem 10 mg tablet 10 mg PO BEDTIME PRN Sleep 09/11/18 12/19/18 Previous Rx's Medication Instructions Recorded atorvastatin 20 mg tablet (Lipitor) 40 mg PO BEDTIME #30 tabs 09/12/18 Allergies Allergy/AdvReac Type Severity Reaction Status Date / Time penicillin G [PENICILLIN G] Allergy Severe THROAT Verified 02/27/19 10:09 SWELLING Review of Systems Review of Systems Narrative: GENERAL: Denies chills, fatigue, malaise, fever, sweats. HEENT: Denies sinus pain, ear pain, sore throat RESPIRATORY: Denies dyspnea, cough CARDIOVASCULAR: Denies chest pain, palpitations GASTROINTESTINAL: Denies nausea, vomiting, abdominal pain : Denies dysuria, frequency, hematuria MUSCULOSKELETAL: Positive muscle or bony pain SKIN: Denies rash, skin lesions NEUROLOGIC: Denies weakness, numbness ROS Unobtainable: All systems reviewed & are unremarkable except as noted in HPI and below Patient History Medical History (Updated 05/20/22 @ 10:07 by Heber Serrato MD) Carotid artery dissection Chronic migraine COPD (chronic obstructive pulmonary disease) DDD (degenerative disc disease) Esophageal spasm Esophageal stricture Michael's syndrome Tobacco dependence Uvular swelling Surgical History History of back surgery Family History Mother Diabetes mellitus Father Coronary arteriosclerosis Sister Breast cancer Social History household members: spouse and children Smoking Status: Current every day smoker alcohol intake: never Smoking Status: Current every day smoker alcohol intake frequency: 0-2 drinks per day Substance Use Type: does not use Exam Narrative Exam Narrative: GENERAL: in no distress, not toxic not dyspneic, shirt removed. Skin exposed HEAD: Normocephalic. EYES: Pupils equal round No scleral icterus. EXTREMITIES: No gross deformities. Examination left upper extremity. Nontender wrist and elbow. Able to supinate pronate without any difficulty. 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 There is tenderness at the surface of the acromioclavicular joint space area as well as the upper outer lateral portion of the pectoral muscle. Increased pain of the left shoulder with internal external rotation forward flexion and bringing can behind the back. Increased pain with abduction, almost to 90?, increased pain with attempt to bring hand above the shoulders. NEURO: AOx4. SKIN: Warm and dry PSYCH: Not anxious, is cooperative Initial Vital Signs Initial Vital Signs: Vital Signs Temperature 98 F 05/20/22 09:45 Pulse Rate 62 05/20/22 09:45 Respiratory Rate 18 05/20/22 09:45 Blood Pressure 123/73 05/20/22 09:45 Pulse Oximetry 98 05/20/22 09:45 Oxygen Delivery Method 05/20/22 09:45 Course Course Course Narrative: No new issues during course of stay Orders Ordered: ED Orders 05/20/22 09:55 XR shoulder LT min 2V Stat Discontinued Medications Ibuprofen (Ibuprofen 400 Mg Tablet) 800 mg PO NOW ONE Stop: 05/20/22 10:01 Last Admin: 05/20/22 10:20 Dose: 800 mg Documented By: JOSE Reevaluation(s) Reevaluation #1: Reviewed with patient findings, likely rotator cuff injury. Will need outpatient MRI once the pain/swelling improves. Referral orthopedics given. Patient is happy with treatment plan and return precautions reviewed with him. Vital Signs Vital signs: Vital Signs - 8 hr 05/20/22 09:45 05/20/22 09:48 05/20/22 09:48 Temperature 98 F Pulse Rate 62 56 L Respiratory Rate 18 18 Blood Pressure 123/73 123/73 Pulse Oximetry 98 96 Oxygen Delivery Method Room Air MDM - Extremity Injury (Upper) Differential Diagnosis Differential diagnosis: Likely other (Rotator cuff injury/pectoris muscle i njury/AC joint injury/fracture) Imaging Data Extremity x-ray #1: Radiologist's Impression: [address] [id number] XRay Report Signed Patient: Rafael Eckert MR#: [id number] : 1970 Acct:[id number] Age/Sex: 51 / M Date of Service: 05/20/22 Loc: ED Accession Number: [id number] ?? Procedure: XR shoulder LT min 2V Ordering Provider: Heber Serrato MD PROCEDURE:? XR SHOULDER LT MIN 2V ? INDICATIONS:? Pain/injury ? TECHNIQUE:? 3 views of the shoulder were acquired.? ? COMPARISON:? None. ? FINDINGS:? ? Bones:? No fractures or dislocations.? No suspicious bony lesions.? Visualized ribs appear intact.? ? Soft tissues:? No suspicious soft tissue calcifications.? ? IMPRESSION:? No acute radiographic findings. If pain persists, followup imaging in 5-7 days is recommended to exclude occult fracture. ? ? Dictated by: Alanna Solis M.D. on 05/20/2022 at 10:34 ? ? Approved by: Alanna Solis M.D. on 05/20/2022 at 10:34 ? [facility] Narrative Medical decision making narrative: Appropriate for discharge home, exam and imaging are reassuring. Clinically likely rotator cuff injury versus pectoris muscle tear/AC joint injury. However management appropriate for sling and NSAIDs and follow up with provided orthopedic office. Return precautions reviewed with patient. Patient desires discharge home. Discharge Plan Departure Patient Disposition: Home Clinical Impression: Left shoulder strain Instructions: DI for Shoulder Sprain Activity Restrictions/Additional Instructions: Use sling for comfort. May continue ibuprofen for pain. Call provided orthopedic office today for appointment in 1 or 2 weeks. May need outpatient MRI of the shoulder if pain not improving. Return if worse or if any questions or concerns Prescriptions: No Action pantoprazole 40 mg tablet,delayed release (DR/EC) 40 mg PO DAILY ranitidine HCl 150 mg tablet 150 mg PO BID indomethacin 25 mg capsule 25 mg PO DAILY zolpidem 10 mg tablet 10 mg PO BEDTIME PRN (Reason: Sleep) atorvastatin [Lipitor] 20 mg Tablet 40 mg PO BEDTIME Qty: 30 0RF aspirin [Adult Aspirin Regimen] 81 mg tablet,delayed release (DR/EC) 81 mg PO DAILY oxycodone-acetaminophen 7.5-325 mg tablet 1 tab PO TID PRN (Reason: pain) Referrals: Val Rodriguez DO [Primary Care Provider] - Akash Syed MD [Physician] - Visit Report Forms: Patient Portal/API
[2022-05-20] MEDS: IBUPROFEN 400 MG TABLET 800 MG PO (10:20)
== END 2022-05-20 10:30 | disposition home or self-care (01) ==
PROVIDERS: Emergency Provider Emergency Medicine; PCP Family Medicine
DX: S46.912A Strain of unspecified muscle, fascia and tendon at shoulder and upper arm level, left arm, initial encounter (principal); X58.XXXA Exposure to other specified factors, initial encounter
CPT/HCPCS: 73030; 99283; 99284